=== PATIENT | male | born 1960 | race Caucasian/White ===

== ENCOUNTER 2020-08-29 17:11 | Observation (INO) | payer OTHER ==
[2020-08-29 19:37] LABS: #Lymphocytes 2.1 thou/uL (1.20-3.40); #Neutrophils 7.9 thou/uL (1.40-6.50); %Basophils 0.3 % (0.0-1.0); %Eosinophils 0.2 % (0.0-10.0); %Lymphocytes 19.2 % (21.0-51.0); %Monocytes 8.8 % (0.0-10.0); %Neutrophils 71.6 % (42.0-75.0); Hemoglobin 16.1 g/dL (14.0-18.0); Mean Corpuscular HGB CONC 33.1 g/dL (32.0-36.0); Mean Corpuscular Hemoglobin 29.6 pg (27.0-31.0); Mean Corpuscular Volume 89.5 fL (78.0-98.0); Mean Platelet Volume 7.7 fL (7.4-10.4); Platelet Count 197 thou/uL (130-400); RBC Distribution Width 12.2 % (11.5-14.5); Red Blood Cell (RBC) Count 5.42 mill/uL (4.70-6.10); White Blood Cell (WBC) Count 11.1 thou/uL (4.8-10.8)
[2020-08-29 19:52] LABS: ALT (SGPT) 13 U/L (8-55); AST (SGOT) 18 U/L (5-34); Alkaline Phosphatase 75 U/L (40-110); Anion Gap 15 mmol/L (10-20); BUN (Urea Nitrogen) 17 mg/dL (8.4-25.7); Bilirubin, Total 1.2 mg/dL (0.2-1.2); Calc. Creatinine Clearance 0 mL/min (70-130); Carbon Dioxide 27 mmol/L (23-31); Chloride 99 mmol/L (98-107); Globulin 3.5 g/dL (2.4-3.5); Glucose 148 mg/dL (80-115); Potassium 3.8 mmol/L (3.5-5.1); Protein, Total 7.5 g/dL (5.8-8.1); Sodium 137 mmol/L (136-145)
[2020-08-29] MEDS ORDERED: Bupivacaine 0.5% 10 ML VIAL ONE (20:03)
[2020-08-29] MEDS ORDERED: Lidocaine 1% PF 5 ML VIAL ONE (20:03)
[2020-08-29] MEDS ORDERED: Lidocaine 1% w/Epinephrine 1:100K 20 ML VIAL ONE (20:03)
[2020-08-29] MEDS ORDERED: Bacitracin 1 PK ONE (20:28)
--- NOTE | 2020-08-29 20:32 | CT ---
LEFT FOOT CT SCAN WITHOUT IV CONTRAST: History: Left foot swelling and cellulitis, stepped on a nail yesterday and now having redness and pain. FINDINGS: There is evidence for a foreign body in the plantar aspect of the foot measuring 0.4 x 0.8 x 0.2 cm i n size at approximately the second metatarsal bed portion, approximately 0.9 cm from the plantar surf cornell of the foot. There is a tiny amount of air associated with this foreign body. It does not appear to be a metallic density but certainly could be bone density. There is evidence for Achilles enthesop hyte. Minimal degenerative and osteoarthrosis changes. There are two focal areas of incomplete ossifi cation at the tip of the distal fibula and one area of incomplete ossification at the medial malleolu s. No acute fracture or dislocation. IMPRESSION: Evidence for a foreign body in the plantar surface of the foot as above. No evidence of other signifi cant acute process. POS: RRE
[2020-08-29] MEDS ORDERED: Morphine 4 MG/ML VIAL ONE (20:54)
[2020-08-29] MEDS ORDERED: Ondansetron PF 4 MG/2 ML Vial ONE (20:54)
[2020-08-29] MEDS ORDERED: Acetaminophen 650 MG Suppository PR PRN (22:11)
[2020-08-29] MEDS ORDERED: Acetaminophen 325 MG TAB PO PRN (22:11)
--- NOTE | 2020-08-29 22:34 | PDOC.HHP ---
Hospitalist HPI History of Present Illness: ADMISSION DATE: 08/29/2020 TIME OF ASSESSMENT: 2099 PRIMARY CARE PHYSICIAN: None CHIEF COMPLAINT: Left foot pain and swelling HPI: This is a 60-year-old gentleman who presents to the emergency department after being seen at an urgent care center for pain and swelling of the left foot. Patient apparently stepped on something sharp which she presumes was a nail while doing some work outside yesterday. Dates because it was so cold outside his foot was numb and he did not feel the pain until he was back inside. He denies having any longstanding neuropathy involving his feet. There was no evidence of foreign body in his foot but he saw that something sharp had punctu red a hole through his shoe. Today he began to experience significant foot pain and swelling. He was seen at an urgent care center where he was given a tetanus booster, given a dose of Ancef and referred here for IV antibiotics. He had a an x-ray done at the urgent care center that had demonstrated possible foreign body. Since receiving the first dose of antibiotics in the emergency department he has noted significant improvement in pain and swelling. The patient was incidentally found to be Covid positive but denies any respiratory symptoms or fever in the last few days. Also denies having any nausea or vomiting. No abdominal pain or cramping. No changes with his stool and no urinary symptoms. No chest pain palpitations or shortness of breath. No cough or hemoptysis. All other review of systems are negative. ED COURSE: In the ED he had laboratory studies done that showed a white count of 11.1, platelets 197, neutrophils 71.6%, ESR 35, CRP 9.33. Creatinine 1.43, GFR 50, glucose 148, lactic acid 1.6. LFTs normal. CT of the left lower extremity showed evidence for foreign body in the plantar surface of the foot measuring 0.4 x 0.8 x 0.2 cm at the second metatarsal bed approximately 0.9 cm from the plantar surface of the foot. The amount of air associated with the foreign body. Foreign body was removed from the puncture wound. Wound was apparently irrigated and packed. He was started on IV antibiotics with Levaquin. He was incidentally found to be Covid positive. He received 4 mg of morphine IV for pain and received 4 mg of Zofran IV for nausea. Allergies/Adverse Reactions: Allergy/AdvReac Type Severity Reaction Status Date / Time No Known Drug Allergies Allergy Unverified 08/29/20 22:16 Past History: PAST MEDICAL HISTORY: None. PAST SURGICAL HISTORY: None SOCIAL HISTORY: No tobacco use, alcohol consumption or drug use. FAMILY HISTORY: Noncontributory ALLERGIES: No known drug allergies CURRENT MEDICATIONS: None Hospitalist Exam General Appearance: NAD, awake alert General - other findings: VS: Temp 98.4, HR 79, BP 138/99, RR 16, O2 sat 95% on room air Eye: PERRL, anicteric sclera ENT: normocephalic atraumatic, no oropharyngeal lesions, moist mucosa Neck: supple, no lymphadenopathy Heart: RRR, no rubs, normal peripheral pulses Respiratory: CTAB, no wheezes, no rales, no ronchi, normal chest expansion, no tachypnea Gastrointestinal: soft, non-tender, non-distended, normal bowel sounds, no palpable masses, no guarding, no rigidity Extremities: no edema Extremities - other findings: mild warmth to left foot, dressing in place, no wound bleeding or drainage Skin: normal turgor Neurological: cranial nerve grossly intact, normal sensation to touch, no weakness, no focal deficits Musculoskeletal: normal tone, normal strength, no muscle wasting Psychiatric: normal affect, normal behavior, A&O x 3 Hospitalist Results Result Diagrams: 08/29/20 17:30 08/29/20 17:30 Lab results: Laboratory Last Values WBC 11.1 thou/uL (4.8-10.8) H 08/29/20 17:30 RBC 5.42 mill/uL (4.70-6.10) 08/29/20 17:30 Hgb 16.1 g/dL (14.0-18.0) 08/29/20 17:30 Hct 48.5 % (42.0-52.0) 08/29/20 17:30 MCV 89.5 fL (78.0-98.0) 08/29/20 17:30 MCH 29.6 pg (27.0-31.0) 08/29/20 17:30 MCHC 33.1 g/dL (32.0-36.0) 08/29/20 17:30 RDW 12.2 % (11.5-14.5) 08/29/20 17:30 Plt Count 197 thou/uL (130-400) 08/29/20 17:30 MPV 7.7 fL (7.4-10.4) 08/29/20 17:30 Neutrophils % 71.6 % (42.0-75.0) 08/29/20 17:30 Lymphocytes % 19.2 % (21.0-51.0) L 08/29/20 17:30 Monocytes % 8.8 % (0.0-10.0) 08/29/20 17:30 Eosinophils % 0.2 % (0.0-10.0) 08/29/20 17:30 Basophils % 0.3 % (0.0-1.0) 08/29/20 17:30 Neutrophils # 7.9 thou/uL (1.40-6.50) H 08/29/20 17:30 Lymphocytes # 2.1 thou/uL (1.20-3.40) 08/29/20 17:30 Monocytes # 1.0 thou/uL (0.11-0.59) H 08/29/20 17:30 Eosinophils # 0.0 thou/uL (0.0-0.7) 08/29/20 17:30 Basophils # 0.0 thou/uL (0.0-0.2) 08/29/20 17:30 ESR Westergren 35 mm/hr (Less than 20) H 08/29/20 18:57 Sodium 137 mmol/L (136-145) 08/29/20 17:30 Potassium 3.8 mmol/L (3.5-5.1) 08/29/20 17:30 Chloride 99 mmol/L (98-107) 08/29/20 17:30 Carbon Dioxide 27 mmol/L (23-31) 08/29/20 17:30 Anion Gap 15 mmol/L (10-20) 08/29/20 17:30 BUN 17 mg/dL (8.4-25.7) 08/29/20 17:30 Creatinine 1.43 mg/dL (0.7-1.3) H 08/29/20 17:30 Estimated GFR (MDRD) 50 08/29/20 17:30 Glucose 148 mg/dL (80-115) H 08/29/20 17:30 Lactic Acid 1.6 mmol/L (0.5-2.2) 08/29/20 18:57 Calcium 9.0 mg/dL (7.8-10.44) 08/29/20 17:30 Total Bilirubin 1.2 mg/dL (0.2-1.2) 08/29/20 17:30 AST 18 U/L (5-34) 08/29/20 17:30 ALT 13 U/L (8-55) 08/29/20 17:30 Alkaline Phosphatase 75 U/L (40-110) 08/29/20 17:30 C-Reactive Protein 9.33 mg/dL (= or < 0.5) H 08/29/20 17:30 Serum Total Protein 7.5 g/dL (5.8-8.1) 08/29/20 17:30 Albumin 4.0 g/dL (3.4-4.8) 08/29/20 17:30 Globulin 3.5 g/dL (2.4-3.5) 08/29/20 17:30 Albumin/Globulin Ratio 1.1 g/dL (1.2-2.2) L 08/29/20 17:30 Hospitalist H&P A/P (1) Puncture wound of left foot Code(s): S91.332A - PUNCTURE WOUND WITHOUT FOREIGN BODY, LEFT FOOT, INIT ENCNTR Status: Acute Assessment and Plan: Antibiotics switched to Zosyn, given depth of wound/FB Surgical consult for wound assessment Wound care consulted (2) ERICK (acute kidney injury) Code(s): N17.9 - ACUTE KIDNEY FAILURE, UNSPECIFIED Status: Acute Assessment and Plan: IV fluids Avoid nephrotoxic meds (3) COVID-19 virus detected Code(s): U07.1 - COVID-19 Status: Acute Assessment and Plan: Incidentally noted, asymptomatic Baseline CXR ordered Vitamin C, Zinc and Albuterol ordered Continue precautions Add-on d-dimer and ferritin to AM labs Plan: GI Prophylaxis with Famotidine DVT Prophylaxis with Lovenox CODE STATUS FULL Case discussed with Dr. Pantoja who agrees with plan as above.
[2020-08-29] MEDS ORDERED: Albuterol 200 PUFF (6.7GM INHALER) INH PRN (22:38)
[2020-08-29] MEDS ORDERED: Enoxaparin Sodium 40 MG/0.4 ML SYRINGE SC SCH (22:45)
--- NOTE | 2020-08-29 23:26 | RAD ---
2 VIEWS CHEST: Date: 08/29/2020 COMPARISON: None. HISTORY: COVID-positive. Shortness of breath. FINDINGS: Two views of the chest show a normal sized cardiomediastinal silhouette. There is a round nodularity in the right lower lobe which may represent a calcified granuloma. There appear to be scattered subtl e peripheral opacities in the right lung. No pleural effusion. Degenerative changes are seen in the s pine. IMPRESSION: Subtle right-sided peripheral infiltrates. POS: EAA
[2020-08-29 23:49] VITALS: BMI 35.4
[2020-08-30] MEDS: Sodium Chloride 0.9% 1,000 ML IV SCH ×3 (00:14→17:58)
[2020-08-30] MEDS: Piperacillin/Tazobactam 3.375 GM in Sodium Chloride 0.9% 100 ML IVPB SCH ×5 (00:14→23:52)
[2020-08-30] MEDS ORDERED: Piperacillin/Tazobactam 3.375 GM VIAL ONE ×2 (04:47→11:51)
[2020-08-30] MEDS ORDERED: Famotidine 20 MG TAB ONE (08:02)
[2020-08-30] MEDS ORDERED: Enoxaparin Sodium 40 MG/0.4 ML SYRINGE ONE (08:02)
[2020-08-30] MEDS ORDERED: Zinc Sulfate 220 MG CAP ONE (08:03)
[2020-08-30] MEDS ORDERED: Ascorbic Acid 500 mg Chewable Tablet ONE (08:03)
[2020-08-30] MEDS ORDERED: Enoxaparin Sodium 40 MG/0.4 ML SYRINGE SC SCH (09:00)
[2020-08-30] MEDS: Famotidine 20 MG TAB PO SCH ×2 (09:10→20:49)
[2020-08-30] MEDS: Ascorbic Acid 500 mg Chewable Tablet PO SCH (09:10)
[2020-08-30] MEDS: Zinc Sulfate 220 MG CAP PO SCH (09:10)
--- NOTE | 2020-08-30 10:39 | PDOC.HOSPP ---
- Subjective Encounter Date: 08/30/20 Encounter Time: 10:37 Subjective: No overnight events. Patient continues to endorse foot pain and swelling. Feels that his foot looks slightly better than yesterday. Denies fever, chills, sweats. Denies chest pain, SOB, abdominal pain. No numbness/weakness to extremities. Chart and medications reviewed. - Objective Vital Signs & Weight: Vital Signs (12 hours) Temp Pulse Resp BP Pulse Ox 08/29/20 23:46 100.0 F H 77 18 161/99 H 94 L Weight Weight 283 lb 6.4 oz Result Diagrams: 08/29/20 17:30 08/29/20 17:30 Hospitalist ROS - Review of Systems Constitutional: denies: fever, chills, sweats, weakness, malaise, other Eyes: denies: pain, vision change, conjunctivae inflammation, eyelid inflammation, redness, other ENT: denies: ear pain, ear discharge, nose pain, nose discharge, nose lanny estion, mouth pain, mouth swelling, throat pain, throat swelling, other Respiratory: denies: cough, dry, shortness of breath, hemoptysis, SOB with excertion, pleuritic pain, sputum, wheezing, other Cardiovascular: denies: chest pain, palpitations, orthopnea, paroxysmal noc. dyspnea, edema, light headedness, other Gastrointestinal: denies: nausea, vomiting, abdominal pain, diarrhea, constipation, melena, hematochezia, other Genitourinary: denies: dysuria, frequency, incontinence, hematuria, retention, other Musculoskeletal: reports: foot pain. denies: neck pain, shoulder pain, arm pain, back pain, hand pain, leg pain, other Skin: reports: rash. denies: lesions, yessenia, bruising, other Neurological: denies: weakness, numbness, incoordination, change in speech, confusion, seizures, other - Medication Medications: Active Medications Generic Name Dose Route Start Last Admin Trade Name Freq PRN Reason Stop Dose Admin Piperacillin Sod/Tazobactam 100 mls @ 200 mls/hr 08/29/20 23:59 08/30/20 00:14 Sod 3.375 gm/ Sodium Chloride IVPB 100 mls Q6HR MIGUEL ANGEL Administration Sodium Chloride 1,000 mls @ 100 mls/hr 08/29/20 22:30 08/30/20 00:14 Normal Saline 0.9% IV 1,000 mls .Q10H MIGUEL ANGEL Administration Hospitalist Exam Vitals: Vital Signs (12 hours) Temp Pulse Resp BP Pulse Ox 08/29/20 23:46 100.0 F H 77 18 161/99 H 94 L Weight Weight 283 lb 6.4 oz General Appearance: NAD, awake alert Eye: PERRL, anicteric sclera ENT: normocephalic atraumatic, no oropharyngeal lesions, moist mucosa Neck: supple, symmetric, no JVD, no thyromegaly, no lymphadenopathy, no carotid bruit Heart: RRR, no murmur, no gallops, no rubs, normal peripheral pulses Respiratory: CTAB, no wheezes, no rales, no ronchi, normal chest expansion, no tachypnea, normal percussion Gastrointestinal: soft, non-tender, non-distended, normal bowel sounds, no palpable masses, no hepatomegaly, no splenomegaly, no bruit Extremities: no cyanosis, no clubbing Extremities - other findings: L foot with erythema, plantar wound packed Skin: normal turgor, no lesions, no rashes Neurological: cranial nerve grossly intact, normal sensation to touch, no weakness, no focal deficits, no new deficit Musculoskeletal: normal tone, normal strength, no muscle wasting Psychiatric: normal affect, normal behavior, A&O x 3 Hosp A/P - Plan Cellulitis of L Foot Puncture wound of L foot. FB leather/rubber shoe sole on CT scan removed by ER and packed. WBC 11.1. Febrile to 100.0. Cellulitis slightly improving today. Continue IV zosyn, wound care Acute Kidney Injury Pt with mild ERICK, BUN/Cr 1.43/50. Will continue deysi IVF and continue to monitor. COVID-19 Positive Status Pt incidentally positive for COVID. Asymptomatic at this time. Will continue supportive treatment. DVT prophylaxis- SQ heparin FULL CODE Case discussed with attending physician, Dr. Qiu.
[2020-08-30 16:29] LABS: Anion Gap 15 mmol/L (10-20); BUN (Urea Nitrogen) 16 mg/dL (8.4-25.7); Calc. Creatinine Clearance 107 mL/min (70-130); Calcium 8.4 mg/dL (7.8-10.44); Carbon Dioxide 24 mmol/L (23-31); Chloride 103 mmol/L (98-107); Glucose 131 mg/dL (80-115); Potassium 3.5 mmol/L (3.5-5.1); Sodium 138 mmol/L (136-145)
[2020-08-30 19:00] LABS: Band 22 % (5-11); Eosinophils 1 % (0-10); Hemoglobin 15.1 g/dL (14.0-18.0); Lymphocytes 10 % (21-51); MDiff Complete? YES; Mean Corpuscular HGB CONC 32.6 g/dL (32.0-36.0); Mean Corpuscular Hemoglobin 29.5 pg (27.0-31.0); Mean Corpuscular Volume 90.5 fL (78.0-98.0); Mean Platelet Volume 7.8 fL (7.4-10.4); Monocytes 12 % (0-10); Neutrophil 43 % (42-75); Platelet Count 179 thou/uL (130-400); Platelet Morphology Comment Appears Adequate; RBC Distribution Width 12.3 % (11.5-14.5); RBC Morphology Normal; Reactive Lymphocytes 12 % (0-10); Red Blood Cell (RBC) Count 5.13 mill/uL (4.70-6.10); White Blood Cell (WBC) Count 9.5 thou/uL (4.8-10.8)
[2020-08-30] MEDS ORDERED: traMADol HCl 50 MG TAB PO PRN (20:42)
[2020-08-30] MEDS: Heparin 5,000 UNITS/ML VIAL SC SCH (20:49)
[2020-08-31] MEDS: Sodium Chloride 0.9% 1,000 ML IV SCH ×2 (03:25→14:05)
[2020-08-31] MEDS: Piperacillin/Tazobactam 3.375 GM in Sodium Chloride 0.9% 100 ML IVPB SCH ×2 (05:19→12:04)
[2020-08-31] MEDS: Ascorbic Acid 500 mg Chewable Tablet PO SCH (09:21)
[2020-08-31] MEDS: Zinc Sulfate 220 MG CAP PO SCH (09:21)
[2020-08-31] MEDS: Heparin 5,000 UNITS/ML VIAL SC SCH (09:21)
[2020-08-31] MEDS: Famotidine 20 MG TAB PO SCH (09:21)
--- NOTE | 2020-08-31 09:29 | PDOC.HOSPP ---
- Subjective Encounter Date: 08/31/20 Encounter Time: 09:28 Subjective: No overnight events. Patient denies fever, chills, night sweats. Endorses mild foot pain, reports his foot seems less swolen and red to him. Chart and records reviewed. - Objective Vital Signs & Weight: Vital Signs (12 hours) Temp Pulse Resp BP Pulse Ox 08/31/20 07:00 98.6 F 63 16 129/84 96 08/31/20 03:15 98.6 F 58 L 20 152/97 H 95 08/30/20 23:50 99.0 F 60 20 157/94 H 97 Weight Admit Weight 283 lb Weight 283 lb 6.4 oz I&O: 08/30/20 08/31/20 09/01/20 06:59 06:59 06:59 Intake Total 1919 Balance 1919 Result Diagrams: 08/30/20 05:49 08/30/20 05:49 Hospitalist ROS - Review of Systems Constitutional: denies: fever, chills, sweats, weakness, malaise, other Eyes: denies: pain, vision change, conjunctivae inflammation, eyelid inflammation, redness, other ENT: denies: ear pain, ear discharge, nose pain, nose discharge, nose congestion, mouth pain, mouth swelling, throat pain, throat swelling, other Respiratory: denies: cough, dry, shortness of breath, hemoptysis, SOB with excertion, pleuritic pain, sputum, wheezing, other Cardiovascular: denies: chest pain, palpitations, orthopnea, paroxysmal noc. dyspnea, edema, light headedness, other Gastrointestinal: denies: nausea, vomiting, abdominal pain, diarrhea, constipation, melena, hematochezia, other Genitourinary: denies: dysuria, frequency, incontinence, hematuria, retention, other Musculoskeletal: denies: neck pain, shoulder pain, arm pain, back pain, hand pain, leg pain, foot pain, other Skin: denies: rash, lesions, yessenia, bruising, other Neurological: denies: weakness, numbness, incoordination, change in speech, confusion, seizures, other - Medication Medications: Active Medications Generic Name Dose Route Start Last Admin Trade Name Freq PRN Reason Stop Dose Admin Ascorbic Acid 1,000 mg 08/30/20 09:00 02/16/21 09:21 Ascorbic Acid 500 Mg Chewable Tablet PO 1,000 mg DAILY MIGUEL ANGEL Administration Famotidine 20 mg 08/30/20 09:00 08/31/20 09:21 Famotidine 20 Mg Tab PO 20 mg BID MIGUEL ANGEL Administration Heparin Sodium (Porcine) 5,000 units 08/30/20 21:00 08/31/20 09:21 Heparin 5,000 Units/Ml Vial SC Not Given BID MIGUEL ANGEL Piperacillin Sod/Tazobactam 100 mls @ 200 mls/hr 08/29/20 23:59 08/31/20 05:19 Sod 3.375 gm/ Sodium Chloride IVPB 100 mls Q6HR MIGUEL ANGEL Administration Sodium Chloride 1,000 mls @ 100 mls/hr 08/29/20 22:30 08/31/20 03:25 Normal Saline 0.9% IV 1,000 mls .Q10H MIGUEL ANGEL Administration Tramadol HCl 50 mg 08/30/20 20:42 08/30/20 21:12 Tramadol Hcl 50 Mg Tab PO 50 mg Q4H PRN Administration Moderate Pain (4-6) Zinc Sulfate 220 mg 08/30/20 09:00 08/31/20 09:21 Zinc Sulfate 220 Mg Cap PO 220 mg DAILY MIGUEL ANGEL Administration Hospitalist Exam Vitals: Vital Signs (12 hours) Temp Pulse Resp BP Pulse Ox 08/31/20 07:00 98.6 F 63 16 129/84 96 08/31/20 03:15 98.6 F 58 L 20 152/97 H 95 08/30/20 23:50 99.0 F 60 20 157/94 H 97 Weight Admit Weight 283 lb Weight 283 lb 6.4 oz General Appearance: NAD, awake alert Eye: PERRL, anicteric sclera ENT: normocephalic atraumatic, no oropharyngeal lesions, moist mucosa Neck: supple, symmetric, no JVD, no thyromegaly, no lymphadenopathy, no carotid bruit Heart: RRR, no murmur, no gallops, no rubs, normal peripheral pulses Respiratory: CTAB, no wheezes, no rales, no ronchi, normal chest expansion, no tachypnea, normal percussion Gastrointestinal: soft, non-tender, non-distended, normal bowel sounds, no palpable masses, no hepatomegaly, no splenomegaly, no bruit Extremities - other findings: Puncture wound to LLE with improving erythema Skin: normal turgor, no lesions, no rashes Neurological: cranial nerve grossly intact, normal sensation to touch, no weakn ess, no focal deficits, no new deficit Musculoskeletal: normal tone, normal strength, no muscle wasting Psychiatric: normal affect, normal behavior, A&O x 3 Hosp A/P - Plan Cellulitis of L Foot Puncture wound of L foot. FB leather/rubber shoe sole on CT scan removed by ER and packed. WBC 11.1. Febrile to 100.0. Cellulitis improving today. Continue IV zosyn, wound care General surgery consult, recs appreciated Acute Kidney Injury Pt with mild ERICK, BUN/Cr 1.43/50. Will continue deysi IVF and continue to monitor. COVID-19 Positive Status Pt incidentally positive for COVID. Asymptomatic at this time. Will continue supportive treatment. DVT prophylaxis- SQ heparin FULL CODE Case discussed with attending physician, Dr. iQu.
[2020-08-31 17:15] VITALS: BP 147/95; TEMP 98.2
== END 2020-08-31 16:19 | disposition home or self-care (01) ==
LOC: ERS 17:11 → T4-A 20:55
PROVIDERS: ADMIT Student in an Organized Health Care Education/Training Program; ATTEND Student in an Organized Health Care Education/Training Program
DX: U07.1 COVID-19 (principal); S91.332A Puncture wound without foreign body, left foot, initial encounter; L03.116 Cellulitis of left lower limb; N17.9 Acute kidney failure, unspecified; W22.8XXA Striking against or struck by other objects, initial encounter; Y99.0 Civilian activity done for income or pay
CPT/HCPCS: 28190; 36415; 71046; 80048; 80053; 82728; 83605; 85025; 85379; 85652; 86140; 87040; 96365; 96366; 96367; 96372; 96375; 96376; G0378; J1644; J1650; J1956; J2270; J2405; J2543; J3490